=== PATIENT | female | born 1995 | race Caucasian/White ===

== ENCOUNTER 2017-04-14 23:45 | Inpatient (IN) | payer OTHER ==
[~2017-04-14] VITALS: Ht 162.6 cm; Wt 102.5 kg
[2017-04-15] MEDS ORDERED: Lactated Ringer's 1,000 ML IV PRN (02:57)
[2017-04-15] MEDS ORDERED: Methylergonovine 0.2 mg/mL Inj IM PRN ×2 (03:00→08:55)
[2017-04-15] MEDS ORDERED: fentaNYL-PF 50 mCg/mL 2 mL Inj IVPUSH PRN (03:00)
[2017-04-15] MEDS ORDERED: Hemorrhage Kit, Post Partum XX ONE ×2 (03:00→08:55)
[2017-04-15] MEDS ORDERED: Sodium Chloride LOK Flush 10 mL Syringe IVFLUSH PRN (03:00)
[2017-04-15] MEDS ORDERED: Carboprost 250 mCg/mL Inj IM PRN ×2 (03:00→08:55)
[2017-04-15] MEDS ORDERED: Oxytocin 30 Units/500 mL LR 30 UNITS in IV Premix 1 EACH IV PRN ×2 (03:00→08:55)
[2017-04-15] MEDS ORDERED: Oxytocin 10 Unit/mL Inj IM PRN ×2 (03:00→08:55)
[2017-04-15 03:08] LABS: Mean Corpuscular Volume 91.5 fL (81-100)
[2017-04-15] MEDS ORDERED: fentaNYL 2 mCg/mL-Bupivicaine 0.125% 100 mL Premix EPIDURAL ONE (03:25)
[2017-04-15] MEDS ORDERED: Atropine 1 mg/10 mL (Code) Syringe IVPUSH PRN (05:35)
[2017-04-15] MEDS ORDERED: Lactated Ringer's 500 ML IV ONE (05:35)
[2017-04-15] MEDS ORDERED: Lactated Ringer's 1,000 ML IV SCH ×2 (05:35→08:51)
[2017-04-15] MEDS ORDERED: EPHEDrine Sulfate 50 mg/mL Inj IVPUSH PRN (05:35)
[2017-04-15] MEDS ORDERED: fentaNYL 2 mCg/mL-Bupiv 0.125% 100 ML EPIDURAL SCH (05:35)
[2017-04-15] MEDS ORDERED: Ondansetron 2 mg/mL 2 mL Inj IVPUSH PRN (05:35)
--- NOTE | 2017-04-15 05:38 | PCM.HPANE ---
Patient Data Surgeon Admitting Provider:Oleg Hooks MD Attending Provider:Oleg Hooks MD Primary Care Physician:Oleg Hooks MD Other Provider:Trevon Brown Anesthesia Reason for Visit Term Labor TERM LABOR Ht/WT & BMI Body Mass Index Allergies Coded Allergies: No Known Allergies (Unverified , 03/27/16) Past Anesthesia History Anesthesia History: Denies:: Abnormal Airway, Anesthesia Reactions, Difficult Intubation, Fam Anesthesia Reaction, Fam Malignant Hypertherm, Malignant Hyperthermia Diabetes History Hx Diabetes?: No MRSA MRSA: No History History of ENT Problems?: No HEENT History: Denies:: Abnormal Airway Cataracts Difficult Intubation Dysphagia Glaucoma Hearing Problem Sinus Problem TMJ Denture Type: None Teeth Condition: Within Normal Limits Hx of Heart Problems?: No Cardiovascular History: Denies:: AICD Abdominal Aortic Aneurism Atrial Fibrillation Cardiac Surgery Chest Pain Congestive Heart Failure Coronary Artery Disease Edema Heart Murmur Hypertension Irregular Heartbeat Pacemaker Peripheral Vascular Rheumatic Fever Thrombophlebitis Valvular Heart Disease Hx of Respiratory Problem?: No Respiratory History: Denies:: Asthma COPD Chest Surgery Cough Dyspnea Emphysema Hemoptysis Oxygen Administration Pneumonia Pulmonary Embolism Tuberculosis Use of C-PAP Machine Use of Inhalers / NEBS Hx Neurologic Problems?: No Neurological History: Denies:: Alzheimer's Disease CVA Dementia Dizziness Headaches Multiple Sclerosis Parkinson's Disease Peripheral Neuropathy Seizures TIA Hx of GI Problems?: No Gastrointestinal History: Denies:: Cirrhosis Diverticulitis Gall Bladder Disease Gastroesphageal Reflux Gastrointestinal Bleeding Heartburn Hepatitis Hiatal Hernia Liver Disease Rectal Bleeding Hx of Problems?: No Genitourinary History: Denies:: HX of Hemodialysis Kidney Stones Urinary Tract Infection Female Hx: Positive for:: Currently Hx Musculoskeletal Problems?: No Musculoskeletal History: Denies:: Back Injury Degenerative Joint Fibromyalgia Joint Replacement Musculoskeletal Trauma Myasthenia Gravis Osteoarthritis Rheumatoid Arthritis Systemic Lupus Hx Surgeries?: No Hx Alcohol Use: NoHx Substance Use: No Smoking Status: Never Smoker Stop/Bang RAKEL Risk Assessment: Low Risk, <3 Yes Risk Assessment Category Category 1A: Patient has history of documented sleep apnea, and HAS NOT received any narcotic, sedative or anesthesia administration during this stay. Category 1B: Patient has history of documented sleep apnea, and HAS received any narcotic , sedative or anesthesia administration during this stay Category 2: Patient has SUSPECTED Obstructive Sleep Apnea, and HAS received any narcotic , sedative or anesthesia administration during this stay. Category 3: Patient has SUSPECTED Obstructive Sleep Apnea and HAS NOT received narcotic, sedative or anesthesia administration during this stay. Category 4: Outpatient in Procedural Areas with known sleep apnea or who screen positive for High Risk via the STOP/BANG questionnaire. Exam Exam General Appearance: Alert HEENT/AIRWAY: MP 1 Lungs: Clear to Auscultation Heart: Exam Unremarkable Meds/Labs/Diagnostics Admission Meds Current Medications Fentanyl/ Bupivacaine HCl (FentaNYL 2 mCg/ mL-Bupivacaine 0.125%) 100 ml STK- MED ONCE EPIDURAL Last administered on 04/15/17t 03:48; Start 04/15/17 at 03:25 ; Stop 04/15/17 at 03:28; Status DC Labs Test 04/15/17 02:45 White Blood Count 16.9th/mm3 (3.8-10.1) Red Blood Count 4.26mil/mm3 (3.90-5.20) Hemoglobin 13.2g/dL (12.0-15.6) Hematocrit 39.0% (35.0-46.0) Mean Corpuscular Volume 91.5fL (81-100) Mean Corpuscular Hemoglobin 31.0pg (27.0-35.0) Mean Corpuscular Hemoglobin Concent 33.8% (32.0-37.0) Red Cell Distribution Width 12.8% (12.3-15.4) Platelet Count 171bil/L (150-400) Plan Impression Patient chart reviewed, patient interviewed and anesthestic plan with risks, benefits, and alternatives discussed, and informed consent obtained. ASA Physical Status: ASA1 Normal Healthy Anesthetic Plan: Epidural Bene/Risks/Altern/Consents: Yes HP Complete Prior to Induction: Yes Paulo Mcknight MD April 15, 2017 05:37
[2017-04-15] MEDS ORDERED: LANOlin HPA 7 Gm Ointment TOPICAL PRN (08:55)
[2017-04-15] MEDS ORDERED: HYDROcodone-APAP 5-325 mg Tablet PO PRN (08:55)
[2017-04-15] MEDS ORDERED: Benzocaine (Dermoplast) 20% 60 Gm Spray TOPICAL PRN (08:55)
[2017-04-15] MEDS ORDERED: Witch Hazel-Glycerin Pads TOPICAL PRN (08:55)
--- NOTE | 2017-04-15 08:56 | PCM.OBVAG ---
Vaginal Delivery Date of Service April 15, 2017 Pre Operative Diagnosis Pre Operative Diagnosis Term gestation, labor Post Operative Diagnosis Post Operative Diagnosis Term gestation, delivered Procedure Obstetical Procedure: Normal Spontaneous Vaginal Delivery, Repair of Perineal Tear (2nd degree -- repaired in running fashion with 3-O Vicryl) Indication for Procedure Induction: Active labor, SROM, Progressed normally through labor Findings Obstetrical Findings: (Male), Cord (3 Vessel), Presentation (Vertex), 1 minute (8), 5 minutes (9), Placenta (Intact/Normal), Perineal Laceration (2nd degree) Analgesia/Medications Obstetrical Anesthesia: Epidural Procedure Details Procedure Details Patient presented in active phase labor at 40 4/7 weeks EGA. She progressed without incident and delivered via uncomplicated . Blood Loss & Administration Estimated Blood Loss: 300 Post Procedure Plan Post delivery Condition: Mom stable, Baby stable to nursery Oleg Hooks MD April 15, 2017 08:56
[2017-04-16 06:47] LABS: Mean Corpuscular Hemoglobin 31.3 pg (27.0-35.0); Mean Corpuscular Volume 90.1 fL (81-100)
--- NOTE | 2017-04-16 08:25 | PCM.PNOBPP ---
Subjective Date of Service April 16, 2017 Post : Spontaneous Vaginal Delivery Visit History PPD#1 Subjective Patient without complaints. Lochia: Normal Pain Management: No or Minimal Pain Gastrointestinal: Good Appetite, No N/V Postop Activity: Ambulating Independently Labs Laboratory Tests 04/16/17 06:08: White Blood Count 12.8, Red Blood Count 3.83, Hemoglobin 12.0, Hematocrit 34.5, Mean Corpuscular Volume 90.1, Mean Corpuscular Hemoglobin 31.3, Mean Corpuscular Hemoglobin Concent 34.8, Red Cell Distribution Width 13.4, Platelet Count 134 Exam Vital Signs Vital Signs: VS reviewed, stable Exam Abdomen: Uterus is (U-1), Fundus firm, Abdomen soft, Abdomen non-tender, Abdomen non-distended Perineum: Laceration : Voiding without difficulty Extremities: No cords, No tenderness/swelling Lungs: Clear to Auscultation, Normal Air Movement Heart: Normal S1, Normal S2, No Murmurs/Rubs/Gallops General: Alert, Oriented X3, Cooperative, No Acute Distress OB Post Assessment/Plan Assessment PPD#1 -- doing well Problems: (1) Spontaneous vaginal delivery Status: Acute ICD Code: O80 (2) Post-term , 40-42 weeks of gestation Status: Acute ICD Code: O48.0 (3) normal course Status: Acute ICD Code: Z39.2 Pain Evaluation: Adequate Pain Control Post plan: Anticipate discharge home today Oleg Hooks MD April 16, 2017 08:25
--- NOTE | 2017-04-16 08:28 | PCM.DC.OB ---
Obstetrical Discharge Summary Date of Service April 16, 2017 Date of hospital admission April 15, 2017 at 02:35 Date of Discharge: April 16, 2017 Providers Admitting Physician: Oleg Hooks MD Primary Care Physician: Oleg Hooks MD Attending Physician: Oleg Hooks MD Problems: (1) Spontaneous vaginal delivery Status: Resolved ICD Code: O80 (2) Post-term , 40-42 weeks of gestation Status: Resolved ICD Code: O48.0 (3) normal course Status: Resolved ICD Code: Z39.2 Brief History and Physical: 21yo , admitted in active labor at 40 4/7 weeks EGA. Hospital Course: Labor progressed without incident. Patient delivered via uncomplicated . course was uneventful. Discharged on day 1. Disposition Home Follow-up plan 6 weeks Discharge Diet: No restrictions Discharge Activity-General: Pelvic Rest for 6 weeks Oleg Hooks MD April 16, 2017 08:28
--- NOTE | 2017-04-16 08:29 | PCM.DIOB ---
Obstetrical Disch Instruction Date of Service: April 16, 2017 Dates of Hospitalization Date of Hospital Admission April 15, 2017 at 02:35 Providers Admitting Physician: Oleg Hooks MD Primary Care Physician: Oleg Hooks MD Attending Physician: Oleg Hooks MD Discharge Diagnosis Problems: (1) Spontaneous vaginal delivery Status: Resolved ICD Code: O80 (2) Post-term , 40-42 weeks of gestation Status: Resolved ICD Code: O48.0 (3) normal course Status: Resolved ICD Code: Z39.2 Diet Discharge Diet: No restrictions Activity Discharge Activity-General: Pelvic Rest for 6 weeks Dressing and Incisional Care Hygiene: March shower Follow Up Plan Follow-up Provider (F9): Oleg Hooks MD Follow-up appointment: Weeks (6) Call your provider for: Fever or Chills, Shortness of breath, Heavy vaginal bleeding, Excessive constipation, Vaginal discomfort, Red painful breasts Oleg Hooks MD April 16, 2017 08:29
[2017-04-16 10:06] VITALS: BP 124/74; PULSE 102; RESP 18
== END 2017-04-16 10:57 | disposition home or self-care (01) | DRG 775 ==
LOC: FBCO 23:45 → FBC 04-15 02:35
PROVIDERS: ADMIT Family Medicine; ATTEND Family Medicine
PROC: 10E0XZZ Delivery of Products of Conception, External Approach (ICD-10-PCS; principal; 2017-04-15)
PROC: 0KQM0ZZ Repair Perineum Muscle, Open Approach (ICD-10-PCS; 2017-04-15)
DX: O70.1 Second degree perineal laceration during delivery (principal); Z37.0 Single live birth; Z3A.40 40 weeks gestation of pregnancy